=== PATIENT | female | born 1950 | race Caucasian/White ===

== ENCOUNTER 2022-04-01 13:45 | Outpatient (CLI) | payer MEDICARE, SELFPAY ==
--- NOTE | 2022-04-01 14:48 | ECG_ITS ---
Measurements Intervals [place] Rate: 71 P: 69 NV: 196 QRS: 46 QRSD: 66 T: 51 QT: 335 QTc: 366 Interpretive Statements SINUS RHYTHM POSSIBLE LEFT ATRIAL ENLARGEMENT LOW QRS VOLTAGE IN PRECORDIAL LEADS BASELINE ARTIFACT- I, II, III, AVR, AVL, AVF BORDERLINE ECG NO PREVIOUS ECG AVAILABLE FOR COMPARISON Electronically Signed On 04-01-2022 15:19:49 [employer] by Devang Murphy D.O.
[2022-04-01 15:14] LABS: Basophils Percent Auto 0.5 % (0.2-1.2); Eosinophils Absolute Auto 0.1 K/mm3 (0-0.3); Eosinophils Percent Auto 1.7 % (0-4.4); Hematocrit 38.1 % (37.0-47.0); Hemoglobin 11.9 g/dL (12.0-15.0); Immature Granulocyte Absolute 0.02 K/mm3 (0.00-0.031); Immature Granulocyte Percent A 0.3 % (0-0.5); Lymphocytes Absolute Auto 1.27 K/mm3 (0.9-3.2); Lymphocytes Percent Auto 21.6 % (18.3-44.2); Mean Corpuscular HGB Conc 31.2 g/dl (32-36); Mean Corpuscular Volume 99.2 fl (80-100); Monocytes Absolute Auto 0.5 K/mm3 (0.1-0.6); Neutrophils Absolute Auto 3.9 K/mm3 (1.3-6.7); Neutrophils Percent Auto 66.9 % (45.5-73.1); Platelet Count Result 362 k/mm3 (150-375); Red Blood Count 3.84 M/mm3 (4.2-5.4); Red Cell Distribution Width 12.2 % (11.5-14.5); White Blood Count 5.9 K/mm3 (4.5-10.0)
[2022-04-01 15:22] LABS: Prothrombin Time 12.9 Seconds (11.1-14.7)
[2022-04-01 15:23] LABS: Partial Thromboplastin Time 31.5 SECONDS (22.3-36.8)
[2022-04-01 15:24] LABS: Alanine Aminotransferase 25 U/L (6-35); Albumin Level 4.5 g/dL (3.5-5.1); Alkaline Phosphatase 61 U/L (38-126); Anion Gap 5 mmol/L (8-16); Aspartate Amino Transferase 30 U/L (14-36); Bilirubin,Total 0.3 mg/dL (0.2-1.3); Blood Urea Nitrogen 18 mg/dL (7-17); Calcium 9.2 mg/dL (8.4-10.2); Carbon Dioxide 31 mmol/L (22-30); Chloride 99 mmol/L (98-107); Estimated Glomerular Filt Rate > 60; Glucose 100 mg/dL (65-110); Potassium 4.6 mmol/L (3.4-5.0); Sodium 135 mmol/L (137-145)
== END 2022-04-01 13:46 | disposition home or self-care (01) ==
PROVIDERS: Visit Provider Urology
DX: N99.3 Prolapse of vaginal vault after hysterectomy (principal); Z01.818 Encounter for other preprocedural examination; R94.31 Abnormal electrocardiogram [ECG] [EKG]
CPT/HCPCS: 36415; 80053; 85025; 85610; 85730; 86850; 86900; 86901; 87086; 93005

== ENCOUNTER 2022-04-15 00:06 | Day surgery (SDC) | payer MEDICARE, SELFPAY ==
--- NOTE | 2022-04-01 13:38 | PC.NURSE ---
PRE-OP INSTRUCTIONS, PLEASE READ CAREFULLY Report to the Outpatient Waiting Room, entrance under the green pavilion located off [facility], at time _0600_ on date _04/15/22_. Planned Procedure Time: _0730_. Time changes happen often and if your time is changed the preop area will call you the afternoon before. - You and your visitor will be asked to self-screen and do not enter if you have any COVID symptoms. - Only one visitor is requested with a max of two and NO children visitors are allowed at this time. - The patient visitor may be requested to leave or wait in car when not with patient due to distancing restrictions. - A mask is optional within the hospital. Patients may have clear liquids (water, carbonated beverages, clear teas, apple juice) until 3 hours prior to surgery (0430 AM) with a maximum of 20 ounces. - No food from midnight until time of surgery Take the following medications with a SIP of water the morning of surgery: _NONE_ Medications to discontinue - _MELOXICAM PER DR. BOLAND'S INSTRUCTIONS_ ALL VITAMINS/SUPPLEMENTS 7 DAYS PRIOR TO SURGERY PER DR. BOLAND, Date to take last dose 04/07/22_ Please no make-up, nail burundian, hairspray, perfume, deodorant, or body powder the day of surgery. No jewelry (including any body piercings) or valuables the day of surgery, leave them at home. Please take a shower or bath the night before, or the morning of, surgery with an antibacterial soap. Wear comfortable, loose fitting clothing. - Jewelry must be removed prior to entering the operating room. Rings and piercings that are not removed may be cut off. - The hospital will not accept responsibility for valuables. - Please leave all valuables, including medications, at home the day of surgery. If you are going home after surgery, a licensed route sales delivery drivers supervisor must drive you home. - NO public transportation without another adult if you receive anesthesia. - We recommend that an adult stay with you for 24 hours following discharge. - We also recommend that you do not drive, make important decision, drink alcoholic beverages, or take any drugs that were not prescribed by your health care provider for at least 24 hours after your discharge time. Follow any additional instructions given to you from your surgeon. If you or anyone in your household have experienced Covid symptoms in the past week, please notify your surgeon or the nurse liaison at the phone number below for possible testing. Instructions given to _PATIENT_and asked if any additional questions and then verbalized understanding. Patient advised to call surgeon office or pre surgery nurse liaison [phone] if any additional questions.
[2022-04-01 14:20] VITALS: BP 138/54; PULSE 80; RESP 18; TEMP 36.9; O2SAT 100; BMI 23.1
[2022-04-15 06:55] VITALS: BP 132/54; PULSE 89; RESP 14; TEMP 36.9; O2SAT 100
[2022-04-15] MEDS: LACTATED RINGERS 1,000 ML 30 ML IV CONT ×2 (07:02→09:35)
--- NOTE | 2022-04-15 07:12 | WPDHPUPDATE1 ---
History and Physical Update Update Date/Time: 04/15/22 07:12 History and Physical has been reviewed, including an updated exam of the patient. There are NO changes in the patient's condition. Risks, benefits, and alternatives have been discussed and questions answered. Patient agrees to proceed with procedure.
--- NOTE | 2022-04-15 07:16 | PM.IMHP ---
H&P: HPI History of Present Illness Date/Time: 04/15/22 07:16 Chief Complaint: Pelvic organ prolapse Narrative: Post hysterectomy vaginal wall prolapse. No stress incontinence by history or urodynamics. Not sexually active and no plans on becoming sexually active. She has a prior history of pelvic organ prolapse repair as well. Review of Systems Review of Systems: All systems reviewed & are unremarkable except as noted in HPI and below PMFSH Social History Social History Smoking status: Never smoker Second hand tobacco smoke exposure: No Alcohol intake: never Substance use: never Substance use type: does not use Living arrangements: alone Spiritual care concerns: No Meds Home Medications and Allergies Home Medications Medication Instructions Recorded Confirmed Type Bi-Est Proget-Testosterone Td 0.5 mg topical QAM 04/01/22 History Cholorpheniramine 4 mg PRN PRN Congestion 04/01/22 04/01/22 History apple cider vinegar 500 mg tablet 250 mg PO QAM 04/01/22 04/01/22 History ascorbic acid (vitamin C) 1,000 mg 1 g PO DAILY 04/01/22 04/01/22 History tablet (Vitamin C) atorvastatin 10 mg tablet 10 mg HS 04/01/22 04/01/22 History calcium carbonate 600 mg-vitamin 1 tablet PO DAILY 04/01/22 04/01/22 History D3 5 mcg (200 unit) tablet cholecalciferol (vitamin D3) 50 50 mcg PO DAILY 04/01/22 04/01/22 History mcg (2,000 unit) capsule cyanocobalamin (vitamin B-12) 1,000 mcg PO DAILY 04/01/22 04/01/22 History 1,000 mcg capsule estradiol 1 mg/gram (0.1 %) 1 packet transdermal DAILY 04/01/22 04/01/22 History transdermal gel packet lisinopril 10 mg tablet 10 mg QAM 04/01/22 04/01/22 History meloxicam 15 mg tablet 15 mg QAM 04/01/22 04/01/22 History multivitamin 1 tablet PO DAILY 04/01/22 04/01/22 History progesterone micronized 200 mg 200 mg PO HS 04/01/22 04/01/22 History capsule zinc 50 mg capsule 50 mg PO DAILY 04/01/22 04/01/22 History Allergies Allergy/AdvReac Type Severity Reaction Status Date / Time Penicillins AdvReac Rash Verified 04/15/22 06:58 Vital Signs Vital Signs - 24 hr 04/15/22 06:55 Temperature 98.5 F Pulse Rate 89 Respiratory Rate 14 Blood Pressure 132/54 L Pulse Oximetry 100 Oxygen Delivery Room Air Exam Narrative: No acute distress Vaginal wall prolapse of +3 Minimal urethral mobility Alert orient x3 Assessment and Plan Assessment and plan (1) Prolapse of vaginal vault after hysterectomy: Code(s): N99.3 - Prolapse of vaginal vault after hysterectomy Status: Acute Assessment and Plan: Plan for colpocleisis. Understands risks of bleeding, infection, damage surrounding organs, damage to bladder urinary tract, fistula formation, recurrence of prolapse, postoperative voiding dysfunction including incontinence and retention, need for ancillary procedures, inability to have penetrative intercourse. She agrees to proceed.
--- NOTE | 2022-04-15 07:50 | P.PNAN_ITS ---
Anes - Initial Pre Proc Eval Procedure: Operation Date: 04/15/22 07:30 Proposed Procedures p Colpocleisis - Steve Tejada MD Date/Time: 04/15/22 07:50 Surgeon: Steve Tejada MD Pre Op Diagnosis: vaginal vault prolapse Patient Data Age: 72 Gender: F Height: 1.61 m Weight: 57.4 kg Last Vital Signs Temp 36.9 C 04/15/22 06:55 Pulse 89 04/15/22 06:55 Resp 14 04/15/22 06:55 BP 132/54 L 04/15/22 06:55 Pulse Ox 100 04/15/22 06:55 O2 Del Method Room Air 04/15/22 06:55 Allergies Allergy/AdvReac Type Severity Reaction Status Date / Time Penicillins AdvReac Rash Verified 04/15/22 06:58 Home Medications Medication Instructions Recorded Confirmed Type Bi-Est Proget-Testosterone Td 0.5 mg topical QAM 04/01/22 History Cholorpheniramine 4 mg PRN PRN Congestion 04/01/22 04/01/22 History apple cider vinegar 500 mg tablet 250 mg PO QAM 04/01/22 04/01/22 History ascorbic acid (vitamin C) 1,000 mg 1 g PO DAILY 04/01/22 04/01/22 History tablet (Vitamin C) atorvastatin 10 mg tablet 10 mg HS 04/01/22 04/01/22 History calcium carbonate 600 mg-vitamin 1 tablet PO DAILY 04/01/22 04/01/22 History D3 5 mcg (200 unit) tablet cholecalciferol (vitamin D3) 50 50 mcg PO DAILY 04/01/22 04/01/22 History mcg (2,000 unit) capsule cyanocobalamin (vitamin B-12) 1,000 mcg PO DAILY 04/01/22 04/01/22 History 1,000 mcg capsule estradiol 1 mg/gram (0.1 %) 1 packet transdermal DAILY 04/01/22 04/01/22 History transdermal gel packet lisinopril 10 mg tablet 10 mg QAM 04/01/22 04/01/22 History meloxicam 15 mg tablet 15 mg QAM 04/01/22 04/01/22 History multivitamin 1 tablet PO DAILY 04/01/22 04/01/22 History progesterone micronized 200 mg 200 mg PO HS 04/01/22 04/01/22 History capsule zinc 50 mg capsule 50 mg PO DAILY 04/01/22 04/01/22 History Patient hx anesthesia problems: none Family hx anesthesia problems: none Results Review: All pre-operative results and documents have been reviewed as part of the pre- operative evaluation. [facility] Social History Social History Smoking status: Never smoker Second hand tobacco smoke exposure: No Alcohol intake: never Substance use: never Substance use type: does not use Living arrangements: alone Spiritual care concerns: No Anes - Eval Final PreProcedure Day of Procedure 04/15/22 07:50 Patient weight: normal Heart: regular rate and rhythm Lungs: clear to auscultation Airway: Mallampati scale class II Neurological: alert and oriented Last oral intake: >/= 8 hours ASA classification: III Emergent: no Anesthetic plan: proceed Anesthesia type and monitoring: general LMA and standard monitoring Results Review: All pre-operative results and documents have been reviewed as part of the pre- operative evaluation. Informed Consent: The patient's anesthetic plan and its attendant risks and benefits were discussed with the patient/family/POA. Questions were solicited and answers provided to the satisfaction of the patient/family/POA.
[2022-04-15] MEDS: ceFAZolin 2 GM/D5W 50 ML 2 GM/50 ML BAG IVPB (08:11)
[2022-04-15] MEDS: BUPIVACAINE/EPINEPHRINE 0.5% 10 ML VIAL 20 ML INFILTRATE (08:41)
[2022-04-15 09:35] VITALS: BP 144/55; PULSE 85; RESP 18; O2SAT 100
--- NOTE | 2022-04-15 09:56 | P.OP_ITS ---
Procedure Note - Detailed Date of Procedure 04/15/22 Pre-op Diagnosis vaginal vault prolapse female perineal laxity Post-op Diagnosis Same Procedure Performed colpocleisis perineorrhaphy Surgeon Steve Tejada MD Anesthesia MAC Indications this is a woman with post hysterectomy vaginal vault prolapse. She has had previous prolapse repairs. She is not sexually active. She has failed pessary. She presents today for procedure. We discussed all options. She opted for colpocleisis. She understands risks of bleeding, infection, damage to the bowel or urinary tract, inability to have penetrated intercourse, postoperative incontinence and voiding dysfunction, recurrence of prolapse. She agrees to proceed Findings vaginal prolapse Description of Procedure she was correctly identified. Informed consent obtained. She from the operating room. She was given general anesthesia. She was placed in dorsal thigh position. She was prepped draped sterile fashion. Time-out performed. I placed a Pelaez catheter. I placed a Gonzales retractor. I grasped the prolapse with Allis clamps. I eliane 2 rectangle shaped areas on the anterior and posterior vaginal wall. I anesthetized posterior vaginal wall. I removed the mucosa. I did the same on the anterior vaginal wall. I took great care not to injure Underlying organs. I then performed a colpocleisis. I did serial pursestrings of 0 Vicryl suture. This reduced the prolapse. I took great care not to injure underlying organs. I then closed the mucosa with a interrupted 0 Vicryl suture. There was excellent prolapse reduction. On cystoscopy she had moderate trabeculations. Bladder was normal without abnormalities or surgical artifact. Both ureters were seen to excrete clear yellow urine. I then anesthetized a cara-shaped area of skin on the perineum. I removed this area of skin. I performed a perineoplasty with 0 Vicryl sutures in interrupted fashion. I used a 2-0 Vicryl to close mucosa to mucosa completed the cee neorrhaphy. There was excellent perineal support there is narrowing of the vagina. Pelaez catheter was removed. She was awakened transferred to PACU in stable condition. Implants none Estimated Blood Loss 20 Pathology None sent Complications No immediate complications Condition Stable Disposition PACU
[2022-04-15 10:05] VITALS: BP 121/56; PULSE 74; RESP 16; O2SAT 100
[2022-04-15 10:31] VITALS: BP 141/58; PULSE 78; RESP 18
== END 2022-04-15 10:37 | disposition home or self-care (01) ==
PROVIDERS: Visit Provider Urology
PROC: (CPT 57120; principal; 2022-04-15 07:30)
DX: N99.3 Prolapse of vaginal vault after hysterectomy (principal); Z79.890 Hormone replacement therapy; Z79.899 Other long term (current) drug therapy
CPT/HCPCS: 57120; J0690; J1100; J2405; J2704; J3010; J7030; J7120; Q9968